=== PATIENT | female | born 1990 | race Caucasian/White ===

== ENCOUNTER 2019-11-23 17:24 | Emergency (ER) | payer OTHER ==
[~2019-11-23] VITALS: Ht 165.1 cm; Wt 77.3 kg
[2019-11-23] MEDS ORDERED: HYDROCODONE/ACETAMINOPHEN 5-325 MG TABLET PO ONE (18:30)
[2019-11-23 19:30] VITALS: BP 117/78
== END 2019-11-23 20:09 | disposition home or self-care (01) ==
LOC: EMS 17:24
DX: S46.911A Strain of unspecified muscle, fascia and tendon at shoulder and upper arm level, right arm, initial encounter (principal); X50.0XXA Overexertion from strenuous movement or load, initial encounter; Y93.89 Activity, other specified; Y92.89 Other specified places as the place of occurrence of the external cause; Y99.8 Other external cause status

== ENCOUNTER 2020-02-13 13:32 | Emergency (ER) | payer OTHER ==
[~2020-02-13] VITALS: Ht 172.7 cm; Wt 77.3 kg
[2020-02-13] MEDS ORDERED: ACETAMINOPHEN 325 MG TABLET PO ONE (16:15)
[2020-02-13] MEDS ORDERED: IBUPROFEN 600 MG TABLET PO ONE (16:15)
[2020-02-13 16:31] VITALS: BP 127/89
== END 2020-02-13 16:32 | disposition home or self-care (01) ==
LOC: EMS 13:35
DX: S61.215A Laceration without foreign body of left ring finger without damage to nail, initial encounter (principal); W45.8XXA Other foreign body or object entering through skin, initial encounter; Y93.89 Activity, other specified; Y92.89 Other specified places as the place of occurrence of the external cause; Y99.8 Other external cause status
CPT/HCPCS: 12001